=== PATIENT | female | born 1995 | race Two or more races ===

== ENCOUNTER 2020-12-14 19:24 | Emergency (ER) | payer OTHER ==
[~2020-12-14] VITALS: Ht 165.1 cm; Wt 63.5 kg
[2020-12-14] MEDS ORDERED: ONDANSETRON HCL/PF 4 MG/2 ML VIAL ONE (20:17)
[2020-12-14] MEDS ORDERED: NALOXONE PREFILLED SYRINGE 2 MG/2 ML SYRINGE ONE (20:17)
[2020-12-14] MEDS: ONDANSETRON HCL/PF 4 MG/2 ML VIAL IVP ONE (20:29)
[2020-12-14] MEDS: NALOXONE HCL 0.4 MG/ML AMPUL IV ONE (20:29)
[2020-12-14] MEDS: IV NS 0.9% 1,000 ML BAG IV ONE (20:29)
[2020-12-14 20:32] LABS: BASOPHILS # (AUTO) 0.1 K/uL (0.0-0.2); BASOPHILS % (AUTO) 0.9 % (0.0-2.0); HEMATOCRIT 31 % (33-45); HEMOGLOBIN 9.5 g/dL (11.5-14.8); LYMPHOCYTES # (AUTO) 3.4 K/uL (0.8-4.8); LYMPHOCYTES % (AUTO) 31.3 % (20.0-44.0); MEAN CORPUSCULAR HGB CONC 31 g/dl (31.0-36.0); MEAN CORPUSCULAR VOLUME 58 fL (82-100); MONOCYTES # (AUTO) 0.7 K/uL (0.1-1.30); MONOCYTES % (AUTO) 6.8 % (2.0-12.0); NEUTROPHILS # (AUTO) 6.4 K/uL (1.8-8.9); PLATELET COUNT (AUTO) 281 K/uL (150-450); RED BLOOD CELL COUNT(AUTO) 5.38 MIL/uL (4.0-5.2); WHITE BLOOD COUNT (AUTO) 10.9 K/uL (4.3-11.0)
[2020-12-14 20:49] LABS: ALANINE AMINOTRANSFERASE 22 U/L (12-78); ALBUMIN 3.8 g/dL (3.4-5.0); ALCOHOL, BLOOD < 3 mg/dL (0-0); ALKALINE PHOSPHATASE 102 U/L (46-116); ASPARTATE AMINOTRANSFERASE 21 U/L (15-37); BILIRUBIN,DIRECT 0.2 mg/dL (0.0-0.2); BILIRUBIN,TOTAL 0.6 mg/dL (0.2-1.0); CALCIUM, SERUM 8.9 mg/dL (8.5-10.1); CARBON DIOXIDE 27 mmol/L (21-32); CHLORIDE 104 mmol/L (98-107); CREATININE 0.7 mg/dL (0.6-1.3); GLUCOSE 104 mg/dL (74-106); POTASSIUM 2.9 mmol/L (3.5-5.1); SODIUM SERUM 141 mmol/L (136-145); TOTAL PROTEIN, SERUM 8.1 g/dL (6.4-8.2); UREA NITROGEN, BLOOD 13 mg/dL (7-18)
[2020-12-14 20:56] LABS: THYROID STIMULATING HORMONE 0.643 uIU/mL (0.358-3.74)
[2020-12-14 21:41] LABS: SERUM AMMONIA 27 umol/L (11-32)
--- NOTE | 2020-12-14 22:40 | NUR ---
PT ABLE TO AMBULATE TO RESTROOM.
--- NOTE | 2020-12-14 22:48 | NUR ---
URINE SENT TO LAB
[2020-12-14 22:53] LABS: BAND % (MANUAL) 3 % (0.0-5.0); BASOPHILS % (MANUAL) 0 % (0.0-2.0); EOSINOPHILS % (MANUAL) 1 % (0-4); LYMPHOCYTES % (MANUAL) 29 % (16-48); MONOCYTES % (MANUAL) 4 % (0-11.0); NEUTROPHILS % (MANUAL) 63 (42-76)
[2020-12-14 23:43] LABS: BILIRUBIN,URINE Negative (NEGATIVE); COLOR,URINE YELLOW (YELLOW); LEUKOCYTE ESTERASE ,URINE Negative (NEGATIVE); NITRITE, URINE Negative (NEGATIVE); PROTEIN,URINE Negative (NEGATIVE); UGLUCOSE Negative (NEGATIVE); UROBILINOGEN,URINE 0.2 EU/dL (0.2)
--- NOTE | 2020-12-15 04:19 | NUR ---
PT REQUESTING TO BE DISCHARGED HOME. PT OK TO BE DISCHARGED PER DR SIMON.
--- NOTE | 2020-12-15 04:59 | NUR ---
Patient discharged to home in stable condition. Written and verbal after care instructions given. Patient verbalizes understanding of instruction.
[2020-12-15 05:00] VITALS: BP 129/68
== END 2020-12-15 05:00 | disposition home or self-care (01) ==
LOC: EDBD 19:38 → ER 19:38
DX: T40.411A Poisoning by fentanyl or fentanyl analogs, accidental (unintentional), initial encounter (principal); F19.10 Other psychoactive substance abuse, uncomplicated; R00.0 Tachycardia, unspecified; E66.9 Obesity, unspecified; Z68.23 Body mass index [BMI] 23.0-23.9, adult; Y92.89 Other specified places as the place of occurrence of the external cause
CPT/HCPCS: 36415; 71045; 80048; 80076; 80307; 80320; 81003; 82140; 84443; 84484; 84703; 85007; 85025; 93005; 96361; 96374; 96375; 99285; J2310; J2405; J7030; G0480